=== PATIENT | female | born 1995 | race Two or more races ===

== ENCOUNTER 2019-11-01 10:01 | Emergency (ER) | payer MEDICAID, OTHER ==
[~2019-11-01] VITALS: Ht 175.3 cm; Wt 68.0 kg
[2019-11-01 10:42] LABS: Basophils # (auto) 0.1 uL; Eosinophils # (auto) 0.1 uL; Eosinophils % (auto) 1.1 % (0.0-7.0); Hematocrit 45.2 % (36.0-46.0); Hemoglobin 15.3 g/dL (12.2-16.2); Lymphocytes # (auto) 1.5 uL; Lymphocytes % (auto) 26.1 % (10.0-50.0); Mean Corpuscular Hemoglobin 29.2 pg (28.0-32.0); Mean Corpuscular Hgb Conc. 33.9 g/dL (32.0-36.0); Mean Corpuscular Volume 86.3 fL (80.0-100.0); Monocytes # (auto) 0.3 uL; Monocytes % (auto) 5.8 % (0.0-12.0); Neutrophils # (auto) 3.8 uL; Nucleated Red Blood Cells % 0.2 %; Platelet Count (auto) 238 10^3/uL (140-450); Red Blood Cells 5.24 10^6/uL (4.0-5.20); Red Cell Distribution Width 13.9 % (11.8-14.3); White Blood Cell 5.8 10^3/uL (4.4-10.8)
[2019-11-01 10:52] LABS: Albumin 3.9 g/dL (3.4-5.0); Anion Gap 4 (5-15); Aspartate Aminotransferase 15 U/L (15-37); Blood Urea Nitrogen 10 mg/dL (7-18); Calcium 9.1 mg/dL (8.5-10.1); Carbon Dioxide 29 mmol/L (21-32); Chloride 106 mmol/L (98-107); Glucose 83 mg/dL (74-106); Potassium 4.3 mmol/L (3.5-5.1); Sodium 139 mmol/L (136-145)
[2019-11-01 10:57] LABS: Alanine Aminotransferase 17 U/L (13-56); Alkaline Phosphatase 50 U/L (45-117); BUN/Creatinine Ratio 13.9; Bilirubin, Total 0.6 mg/dL (0.2-1.0); GFR African American 126 mL/min; GFR Non-African American 104 mL/min; Total Protein 7.3 g/dL (6.4-8.2)
[2019-11-01 15:43] VITALS: BP 96/54
== END 2019-11-01 15:57 | disposition home or self-care (01) ==
LOC: ER 10:01
DX: F41.9 Anxiety disorder, unspecified (principal); R51 Headache
CPT/HCPCS: 36415; 70450; 71046; 80053; 84484; 85025; 93005